=== PATIENT | male | born 1985 | race Caucasian/White ===

== ENCOUNTER 2019-04-04 09:42 | Emergency (ER) | payer OTHER ==
[2019-04-04] MEDS ORDERED: Diazepam 5 MG TAB ONE (10:47)
[2019-04-04 12:05] LABS: Bilirubin Negative (Negative); Blood, Urine Negative (Negative); Clarity Clear (Clear); Glucose, Urine (Dipstick) Normal (Negative); Leukocyte Negative Leu/uL (Negative); Nitrite Negative (Negative); Protein, Urine (Dipstick) 20 mg/dL (Neg-Trace); Urobilinogen Normal mg/dL (Less than 2)
[2019-04-04] MEDS ORDERED: Acetaminophen 500 MG TAB ONE (13:44)
[2019-04-04] MEDS ORDERED: Ketorolac Tromethamine 30 MG/ML VIAL ONE (13:44)
[2019-04-04] MEDS ORDERED: Dexamethasone 10 MG/ML VIAL ONE (13:44)
--- NOTE | 2019-04-04 13:48 | RAD ---
XR Lumbar Spine 2 Or 3 View HISTORY: Left-sided back pain. COMPARISON: None. FINDINGS: The vertebral bodies are normal in height. Degenerative osteophytes are seen without signif icant disc narrowing. Pedicles are intact without evidence of spondylolisthesis. IMPRESSION: Mild arthritic changes of the spine.
== END 2019-04-04 14:50 | disposition home or self-care (01) ==
LOC: ERS 09:42
DX: S39.012A Strain of muscle, fascia and tendon of lower back, initial encounter (principal); F17.220 Nicotine dependence, chewing tobacco, uncomplicated; X58.XXXA Exposure to other specified factors, initial encounter
CPT/HCPCS: 72100; 81003; 96372; J1100; J1885

== ENCOUNTER 2024-04-26 07:09 | Emergency (ER) | payer BC ==
[2024-04-26] MEDS ORDERED: Morphine 4 MG/ML VIAL ONE (07:47)
[2024-04-26] MEDS ORDERED: Ondansetron PF 4 MG/2 ML Vial ONE (07:47)
== END 2024-04-26 09:44 | disposition home or self-care (01) ==
LOC: ERS 07:09
DX: K80.20 Calculus of gallbladder without cholecystitis without obstruction (principal); I10 Essential (primary) hypertension; F17.220 Nicotine dependence, chewing tobacco, uncomplicated
CPT/HCPCS: 76705; 93005; 96374; 96375; J2272; J2405